=== PATIENT | male | born 1980 | race Caucasian/White ===

== ENCOUNTER 2016-11-23 20:43 | Emergency (ER) | payer MEDICAID ==
[~2016-11-23] VITALS: Ht 172.7 cm; Wt 85.0 kg
[2016-11-23 20:46] VITALS: Ht 172.7 cm; Wt 85.0 kg
[2016-11-23 22:45] VITALS: BP 132/97; PULSE 92; RESP 18
--- NOTE | 2016-11-24 03:42 | ERD ---
ER Documentation Chief Complaint Date/Time DATE: 11/24/16 TIME: 03:39 Chief Complaint acting inappropriately tired, smells of ETOH, acu check 120 HPI 36-year-old male with a history of hypertension and diabetes presenting complaining of dizziness and blurry vision. He states he drank 2 24-ounce beers as he usually does every day. After this he decided to smoke a cigarette that was reportedly laced with marijuana which the patient usually does not do. After this he started feeling anxious, dizzy, and had blurry vision. He denies any associated headache, nausea, vomiting, chest pain or shortness of breath. After the patient arrived to the ER, he started feeling better. Currently he denies any of the aforementioned complaints. ROS All systems reviewed and are negative except as per history of present illness. Allergies Allergies: Coded Allergies: No Known Allergy (Unverified , 11/23/16) PMhx/Soc History of Surgery: No Anesthesia Reaction: No Hx Neurological Disorder: No Hx Respiratory Disorders: No Hx Cardiac Disorders: Yes (HYPERTENSION, CHOLESTEROL ) Hx Psychiatric Problems: No Hx Miscellaneous Medical Probl: Yes (DIABETES ) Hx Alcohol Use: Yes Hx Substance Use: No Hx Tobacco Use: Yes Smoking Status: Current every day smoker FmHx Family History: No coronary disease Physical Exam Vitals Vital Signs Date Time Temp Pulse Resp B/P Pulse Ox O2 Delivery O2 Flow Rate FiO2 11/23/16 22:45 92 18 132/97 100 Room Air 11/23/16 20:46 97.8 103 20 141/96 96 Physical Exam Const: Nontoxic, well-developed, well-nourished, no distress Head: Atraumatic Eyes: Normal Conjunctiva, EOMI, Gerard ENT: Normal External Ears, Nose and Mouth. Neck: Full range of motion. No meningismus. Resp: Clear to auscultation bilaterally Cardio: Regular rate and rhythm, no murmurs Abd: Soft, non tender, non distended. Normal bowel sounds Skin: No petechiae or rashes Back: No midline or flank tenderness Ext: No cyanosis, or edema Neuro: M/S: Alert and oriented Face: EOMI, face and pharynx with normal sensation and function Motor: Normal strength throughout Sensation: Normal sensation throughout Speech: Normal Cerebel: Normal coordination Normal gait Normal finger to nose DTR: 2+ and symmetric upper/lower extremities Psych: Normal Mood and Affect Procedures/MDM Patient is presenting with complaints of dizziness and anxiety after smoking marijuana. His vitals are all within normal limits. The time I evaluated the patient, he had no persistent symptoms. He feels much better and is ready to go home. I do not believe the patient needs any further workup with labs or imaging at this time. I do not suspect acute coronary syndrome, acute stroke, or other serious cardiopulmonary etiology of his symptoms. I suspect his symptoms are secondary to smoking marijuana in addition to drinking alcohol. Return precautions were discussed with the patient and his in detail. The patient was ambulating with a steady gait and tolerating fluids by mouth. He was discharged in a stable condition with strict return precautions. He was advised to abstain from any drugs and alcohol. Departure Diagnosis: Primary Impression: Adverse reaction to cannabis Encounter type: initial encounter Qualified Code: T40.7X5A - Adverse reaction to cannabis, initial encounter Additional Impression: Alcohol intoxication Complication of substance-induced condition: uncomplicated Qualified Code: F10.120 - Alcohol intoxication, uncomplicated Condition: Stable Patient Instructions: Possible Causes of Dizziness or Fainting Additional Instructions: No usa marijuana or otros drogas. Si estas empeorando, regrese a la sharri emergencia. JENNIFER MORILLO MD Nov 24, 2016 03:42
== END 2016-11-24 00:37 | disposition home or self-care (01) ==
LOC: E/R 20:43
DX: F10.120 Alcohol abuse with intoxication, uncomplicated (principal); T40.7X5A Adverse effect of cannabis (derivatives), initial encounter; I10 Essential (primary) hypertension; E11.9 Type 2 diabetes mellitus without complications; F17.210 Nicotine dependence, cigarettes, uncomplicated
CPT/HCPCS: 99282

== ENCOUNTER 2016-12-24 00:43 | Emergency (ER) | payer MEDICAID ==
[~2016-12-24] VITALS: Ht 167.6 cm; Wt 83.8 kg
[2016-12-24 00:48] VITALS: Ht 167.6 cm; Wt 83.8 kg
[2016-12-24] MEDS ORDERED: METF500T4 PO (02:15)
--- NOTE | 2016-12-24 02:16 | ERD ---
ER Documentation Chief Complaint Date/Time DATE: 12/24/16 TIME: 02:14 Chief Complaint headache x 1 day HPI 36-year-old male presents here in emergency department for multiple complaints. Patient is complaining of headache, throbbing pain, 6/10 scale, not better or worse with anything. Patient also is complaining of left mid chest burning pain , 4/10 scale, and palpitations with it, accompanying also with a headache. Patient states he is going through a lot of stress lately. Patient did not take any medications of symptoms. Patient denies any dizziness. Patient denies any dyspnea on exertion or dyspnea on lying down. Patient denies any head injury. Patient denies any changes in balance or memory. Patient denies any blurry vision. Patient denies any nausea or vomiting. ROS All systems reviewed and are negative except as per history of present illness. Medications Home Meds Reported Medications Metformin* (Glucophage*) Unknown Strength Tab, PO DAILY, #20 TAB 12/24/16 Allergies Allergies: Coded Allergies: No Known Drug Allergies (Verified Allergy, Unknown, 12/24/16) PMhx/Soc History of Surgery: No Anesthesia Reaction: No Hx Neurological Disorder: No Hx Respiratory Disorders: No Hx Cardiac Disorders: Yes (HYPERTENSION, CHOLESTEROL ) Hx Psychiatric Problems: No Hx Miscellaneous Medical Probl: Yes (DIABETES ) Hx Alcohol Use: Yes Hx Substance Use: No Hx Tobacco Use: Yes FmHx Family History: No coronary disease, No diabetes, No other Physical Exam Vitals Vital Signs Date Time Temp Pulse Resp B/P Pulse Ox O2 Delivery O2 Flow Rate FiO2 12/24/16 00:48 97.7 104 20 163/95 98 Physical Exam GENERAL: The patient is well developed and appropriate for usual state of health, in no apparent distress. CHEST: Clear to auscultation bilaterally. There are no rales, wheezes or rhonchi. HEART: Regular rate and rhythm. No murmurs, clicks, rubs or gallops. No S3 or S4. ABDOMEN: Soft, nontender and nondistended. Good bowel sounds. No rebound or guarding. No gross peritonitis. No gross organomegaly or masses. No Payne sign or McBurney point tenderness. BACK: No midline or flank tenderness. EXTREMITIES: Equal pulses bilaterally. There is no peripheral clubbing, cyanosis or edema. No focal swelling or erythema. Full range of motion. Grossly neurovascularly intact. NEURO: Alert and oriented. Cranial nerves 2-12 intact. Motor strength in all 4 extremities with 5/5 strength. Sensation grossly intact. Normal speech and gait. Negative Romberg sign. Negative pronator drift. SKIN: There is no apparent rash or petechia. The skin is warm and dry. HEMATOLOGIC AND LYMPHATIC: There is no evidence of excessive bruising or lymphedema. No gross cervical, axillary, or inguinal lymphadenopathy. Result Diagram: 12/24/1624912/24/16 0250 Results 24 hrs Laboratory Tests Test 12/24/16 02:50 Alanine Aminotransferase (ALT/SGPT) 27IU/L Albumin 4.7g/dl Albumin/Globulin Ratio 1.56 Alkaline Phosphatase 68IU/L Anion Gap 19 Aspartate Amino Transf (AST/SGOT) 26IU/L Basophils # 0.010^3/ul Basophils % 0.4% Blood Urea Nitrogen 11mg/dl Calcium Level 9.5mg/dl Carbon Dioxide Level 25mmol/L Chloride Level 102mmol/L Creatinine 0.64mg/dl Direct Bilirubin 0.00mg/dl Eosinophils # 0.110^3/ul Eosinophils % 1.8% Globulin 3.00g/dl Glucose Level 135mg/dl Hematocrit 47.9% Hemoglobin 16.1g/dl Indirect Bilirubin 0.4mg/dl Lymphocytes # 2.610^3/ul Lymphocytes % 31.7% Mean Corpuscular Hemoglobin 30.7pg Mean Corpuscular Hemoglobin Concent 33.7g/dl Mean Corpuscular Volume 91.0fl Mean Platelet Volume 8.0fl Monocytes # 0.610^3/ul Monocytes % 7.2% Neutrophils # 4.810^3/ul Neutrophils % 58.9% Nucleated Red Blood Cells # 0.010^3/ul Nucleated Red Blood Cells % 0.0/100WBC Platelet Count 91586^3/UL Potassium Level 3.8mmol/L Red Blood Count 5.2610^6/ul Red Cell Distribution Width 12.8% Sodium Level 142mmol/L Total Bilirubin 0.4mg/dl Total Protein 7.7g/dl Troponin I < 0.012ng/ml White Blood Count 8.210^3/ul EKG was done, read by me and is normal sinus rhythm at a rate of 92, normal axis , there is no ST changes or changes in the EKG that indicates any cardiac emergencies at this time. Patient's EKG was also reviewed by Dr. Brown. Impression: no acute findings on EKG PROCEDURE: Portable chest x-ray. CLINICAL INDICATION: Chest pain. TECHNIQUE: Portable AP view of the chest. COMPARISON: None. FINDINGS: No pulmonary edema or conolidation is identified. The cardiac silhouette is magnified. No pleural effusion is seen. There is no pneumothorax. IMPRESSION: 1. No evidence of acute cardiopulmonary disease. RPTAT: HTAR .Eliu Wing MD, MD Date Time Electronically viewed and signed by .Eliu Wing MD, MD on 12/24/2016 02:50 .R/ CC: TORI DAMON NP PROCEDURE: CT Brain without contrast CLINICAL INDICATION: Headache TECHNIQUE: A CT of the brain was performed on multidetector high-resolution CT scanner utilizing axial sections from the skull base through the vertex without contrast. The scan was reviewed in soft tissue brain and high frequency resolution bone algorithm windows. Images were reviewed on a high- resolution PACS workstation. The exam CTDI = 45.01 mGy and the DLP = 720.23 mGy- cm. One or more of the following dose reduction techniques were used: - Automated exposure control. - Adjustment of the mA and/or kV according to patient size. - Use of iterative reconstruction technique. COMPARISON: None available FINDINGS: The ventricles and sulci are symmetric and normal in size and morphology. There is no evidence of intracranial hemorrhage, mass effect, edema or midline shift. No abnormal intra-axial or extra-axial fluid collections are seen. The density of the brain is normal and the sheehan/white matter differentiation is well preserved. Brainstem and posterior fossa structures are equally unremarkable. The osseous structures and visualized paranasal sinuses are unremarkable. The surrounding soft tissue scalp and bony calvarium are intact and normal. There is appearance of a 3 mm skin mole in the upper midline frontoparietal region. IMPRESSION: No acute abnormality seen. RPTAT: HJES .Quinn Dean MD, MD Date Time Electronically viewed and signed by .Quinn Dean MD, on 12/24/2016 03:29 Procedures/MDM Medical Decision Making: Patient symptoms is likely consistent with anxiety, possible tension headache and anxiety sensation causing some chest pain and palpitations. There is low suspicion for cardiopulmonary emergencies at this time. Patient has low risk factors. EKG is normal, there is no changes in the EKG that indicates cardiac emergencies. Chest X-ray does not show cardiopulmonary emergencies at this time. There is low suspicion for aortic aneurysm, myocardial infarction, pneumothorax, pleural effusion, pulmonary embolism, or any other cardiopulmonary emergencies at this time. Cardiac markers are normal. There is low suspicion for neurological emergencies at this time since patients neurologic exam is normal. Patient did not have any altered level consciousness, vomiting, changes in balance or memory after incident. Patients CT scan of the head does not show any neurological emergencies at this time. Patient was given a prescription for tramadol for severe pain, is advised to follow-up with primary care doctor in 1-2 days for reevaluation of symptoms. Patient was advised to return to emergency department for any worsening symptoms Departure Diagnosis: Primary Impression: Headache Headache type: unspecified Headache chronicity pattern: acute headache Intractability: not intractable Qualified Code: R51 - Acute nonintractable headache, unspecified headache type Additional Impression: Atypical chest pain Condition: Stable Patient Instructions: Chest Pain, Noncardiac , Self-Care for Headaches Additional Instructions: Patient was given a prescription for tramadol for severe pain, is advised to follow-up with primary care doctor in 1-2 days for reevaluation of symptoms. Patient was advised to return to emergency department for any worsening symptoms TORI DAMON NP Dec 24, 2016 02:16
--- NOTE | 2016-12-24 02:50 | RADRPT ---
PROCEDURE: Portable chest x-ray. CLINICAL INDICATION: Chest pain. TECHNIQUE: Portable AP view of the chest. COMPARISON: None. FINDINGS: No pulmonary edema or conolidation is identified. The cardiac silhouette is magnified. No pleural effusion is seen. There is no pneumothorax. IMPRESSION: 1. No evidence of acute cardiopulmonary disease. RPTAT: HTAR .Eliu Wing MD, MD Date Time Electronically viewed and signed by .Eliu Wing MD, on 12/24/2016 02:50 .R/
--- NOTE | 2016-12-24 03:29 | RADRPT ---
PROCEDURE: CT Brain without contrast CLINICAL INDICATION: Headache TECHNIQUE: A CT of the brain was performed on multidetector high-resolution CT scanner utilizing a xial sections from the skull base through the vertex without contrast. The scan was reviewed in sof t tissue brain and high frequency resolution bone algorithm windows. Images were reviewed on a high -resolution PACS workstation. The exam CTDI = 45.01 mGy and the DLP = 720.23 mGy-cm. One or more of the following dose reduction techniques were used: - Automated exposure control. - Adjustment of the mA and/or kV according to patient size. - Use of iterative reconstruction technique. COMPARISON: None available FINDINGS: The ventricles and sulci are symmetric and normal in size and morphology. There is no evidence of i ntracranial hemorrhage, mass effect, edema or midline shift. No abnormal intra-axial or extra-axial fluid collections are seen. The density of the brain is normal and the sheehan/white matter different iation is well preserved. Brainstem and posterior fossa structures are equally unremarkable. The o sseous structures and visualized paranasal sinuses are unremarkable. The surrounding soft tissue sc alp and bony calvarium are intact and normal. There is appearance of a 3 mm skin mole in the upper m idline frontoparietal region. IMPRESSION: No acute abnormality seen. RPTAT: HJES .Quinn Dean MD, Date Time Electronically viewed and signed by .Quinn Dean MD, on 12/24/2016 03:29 .S/
[2016-12-24 03:50] LABS: CHLORIDE 102 mmol/L (97-110)
[2016-12-24 03:51] LABS: ALBUMIN 4.7 g/dl (3.3-4.9); BASOPHILS % 0.4 % (0.0-2.0); EOSINOPHILS # 0.1 10^3/ul (0.0-0.5); EOSINOPHILS % 1.8 % (0.0-7.0); HEMATOCRIT 47.9 % (42.0-52.0); HEMOGLOBIN 16.1 g/dl (14.0-18.0); LYMPHOCYTES # 2.6 10^3/ul (0.8-2.9); LYMPHOCYTES % 31.7 % (15.0-51.0); MEAN CORPUSCULAR HEMOGLOBIN 30.7 pg (29.0-33.0); MEAN CORPUSCULAR HGB CONC 33.7 g/dl (32.0-37.0); MONOCYTE # 0.6 10^3/ul (0.3-0.9); MONOCYTES % 7.2 % (0.0-11.0); NEUTROPHIL # 4.8 10^3/ul (1.6-7.5); NEUTROPHILS % 58.9 % (39.0-77.0); PLATELET COUNT 365 10^3/UL (140-440); POTASSIUM 3.8 mmol/L (3.5-5.1); RED BLOOD COUNT 5.26 10^6/ul (4.70-6.10); RED CELL DISTRIBUTION WIDTH 12.8 % (11.5-14.5); SODIUM 142 mmol/L (135-144); UNCORRECTED WBC 8.2 10^3/ul (4.8-10.8); WHITE BLOOD COUNT 8.2 10^3/ul (4.8-10.8)
[2016-12-24 03:53] LABS: CREATININE 0.64 mg/dl (0.61-1.24)
[2016-12-24 03:54] LABS: ALANINE AMINOTRANSFERASE 27 IU/L (13-69); ALBUMIN/GLOBULIN RATIO 1.56; ALKALINE PHOSPHATASE 68 IU/L (42-121); ANION GAP 19 (8-16); ASPARTATE AMINO TRANSFERASE 26 IU/L (15-46); BILIRUBIN,INDIRECT 0.4 mg/dl (0-1.1); BILIRUBIN,TOTAL 0.4 mg/dl (0.2-1.3); BLOOD UREA NITROGEN 11 mg/dl (7-20); CALCIUM 9.5 mg/dl (8.4-10.2); CARBON DIOXIDE 25 mmol/L (21-31); CONDITION 1; GLUCOSE 135 mg/dl (70-220); TOTAL PROTEIN 7.7 g/dl (6.1-8.1)
[2016-12-24 04:10] LABS: TROPONIN-I < 0.012 ng/ml (0.00-0.12)
[2016-12-24] MEDS ORDERED: TRAM50TA2 PO (04:41)
[2016-12-24 05:19] VITALS: BP 140/85; PULSE 94; RESP 20; TEMP 98.3
== END 2016-12-24 05:19 | disposition home or self-care (01) ==
LOC: FTE 00:43
DX: R51 Headache (principal); R07.89 Other chest pain; I10 Essential (primary) hypertension; E11.9 Type 2 diabetes mellitus without complications; Z79.84 Long term (current) use of oral hypoglycemic drugs; Z72.0 Tobacco use
CPT/HCPCS: 36415; 70450; 71010; 80053; 84484; 85025; 93005; Z7502

== ENCOUNTER 2017-03-31 16:26 | Emergency (ER) | payer MEDICAID, OTHER ==
[~2017-03-31] VITALS: Ht 172.7 cm; Wt 74.0 kg
[~2017-03-31 16:26] MED LIST: METF500T4 PO; TRAM50TA2 PO
[2017-03-31 16:27] VITALS: Ht 172.7 cm; Wt 74.0 kg
[2017-03-31] MEDS ORDERED: IBUP-1542 PO (16:59)
[2017-03-31] MEDS ORDERED: CEPH-443 PO (16:59)
[2017-03-31] MEDS ORDERED: DIPHTH/TET/ACEL PERTUSS (ADULT) 0.5 ML VIAL IM* ONE (17:00)
[2017-03-31] MEDS ORDERED: HYDROCODONE/APAP (5/325) TAB PO ONE (17:00)
[2017-03-31] MEDS ORDERED: LIDOCAINE 1% (MDV) 20 ML INJ SC ONE (17:00)
--- NOTE | 2017-03-31 17:02 | ERD ---
ER Documentation Chief Complaint Date/Time DATE: 03/31/17 TIME: 17:00 Chief Complaint left hand lac with a knife today HPI Patient is a 36-year-old male with past medical history of hypertension, diabetes, hyperlipidemia presents with laceration of his left hand which occurred approximately 1 hour ago. Patient notes that he was attempting to cut open in his room when he accidentally cut his left hand. Patient does report bleeding which is now resolved. Patient has normal range of motion of all digits. Patient states his last tetanus vaccination was greater than 5 years ago. Patient denies any injuries to the affected extremity. Patient is R hand dominant. ROS All systems reviewed and are negative except as per history of present illness. Medications Home Meds Active Scripts Hydrocodone/Acetaminophen (Artemus 5-325 Tablet) 1 Each Tablet, 1 TAB PO Q6H Y for PAIN, #7 TAB Prov:JOHNNY CHRISTOPHER PA-C 03/31/17 Ibuprofen* (Motrin*) 600 Mg Tab, 600 MG PO Q6, #30 TAB Prov:JOHNNY CHRISTOPHER PA-C 03/31/17 Cephalexin* (Keflex*) 500 Mg Capsule, 500 MG PO QID for 10 Days, CAP Prov:JOHNNY CHRISTOPHER PA-C 03/31/17 Tramadol HCl (Tramadol HCl) 50 Mg Tablet, 50 MG PO Q6 Y for PAIN, #20 TAB Prov:TORI DAMON NP 12/24/16 Reported Medications Metformin* (Glucophage*) Unknown Strength Tab, PO DAILY, #20 TAB 12/24/16 Allergies Allergies: Coded Allergies: No Known Drug Allergies (Verified Allergy, Unknown, 12/24/16) PMhx/Soc History of Surgery: No Anesthesia Reaction: No Hx Neurological Disorder: No Hx Respiratory Disorders: No Hx Cardiac Disorders: Yes (HTN Cholesterol) Hx Psychiatric Problems: No Hx Alcohol Use: No Hx Substance Use: No Hx Tobacco Use: No Physical Exam Vitals Vital Signs Date Time Temp Pulse Resp B/P Pulse Ox O2 Delivery O2 Flow Rate FiO2 03/31/17 16:27 98.6 110 18 138/87 100 Physical Exam GENERAL: Well-developed, well-nourished male. Appears in no acute distress. HEAD: Normocephalic, atraumatic. EYES: Pupils are equally reactive bilaterally. EOMs grossly intact. No conjunctival erythema. ENT: Moist mucous membranes. No uvula deviation. No kissing tonsils. NECK: Supple. No meningismus. Normal range of motion of the neck. LUNG: Clear to auscultation bilaterally. No rhonchi, wheezing, rales or coarse breath sounds. HEART: Regular rate and rhythm. No murmurs, rubs or gallops. EXTREMITIES: Equal pulses bilaterally. No peripheral clubbing, cyanosis or edema. No unilateral leg swelling. NEUROLOGIC: Alert and oriented. Moving all four extremities without any difficulty. Normal speech. Steady gait. SKIN: Normal color. Warm and dry. No rashes or lesions. LEFT HAND: 4 cm linear laceration noted to the dorsal aspect of the patient's left hand below the thumb. Patient has normal range of motion of all digits. Normal bleeding. Neurovascularly intact. (Able to give thumbs up, make an ok sign, cross digits 2 and 3, thumb to pinky opposition. 2+ RP.) No snuffbox tenderness. Results 24 hrs Current Medications Medications (Trade) Dose Ordered Sig/Mohan Route PRN Reason Start Time Stop Time Status Last Admin Dose Admin Acetaminophen/ Hydrocodone Bitart (Artemus (5/325)) 1 tab ONCE ONCE PO 03/31/17 17:00 03/31/17 17:01 DC 03/31/17 16:56 Lidocaine (Xylocaine 1% (Mdv) 20 ml) 20 ml ONCE ONCE SC 03/31/17 17:00 03/31/17 17:01 DC Diphtheria/ Tetanus/Acell Pertussis (Adacel) 0.5 ml ONCE ONCE IM* 03/31/17 17:00 03/31/17 17:01 DC 03/31/17 17:00 Procedures/MDM ED COURSE: The patient was stable throughout ED course. I kept the patient and/or family informed of laboratory and diagnostic imaging results throughout the ED course. PROCEDURES: Laceration Repair by me: Anesthesia: 1% lidocaine locally Location: left hand, below left thumb Tendon/Joint/Nerves: No injury Foreign body: None detected after copious irrigation and exploration Technique: 7 Simple Interrupted Sutures, Prolene 4-0 Complexity: No subcutaneous sutures/mucosal repair/edge excision Post Closure Length: 4 cm Patient's bleeding was easily controlled in the department and there is no indication of anemia. No evidence of compartment syndrome, neurologic injury, vascular injury, open joint, tendon laceration, or foreign body. Scar minimization instructions given. MEDICATIONS GIVEN: Artemus Patient tolerated medication well with no adverse reactions. Patient reported improvement in pain. MEDICAL DECISION MAKING: This is a 36-year-old male presents with a laceration to his left hand after cutting it with a kitchen knife while attempting to cut a coconut. Vital signs were reviewed. Patient was afebrile. The wound was cleansed thoroughly and closed using 7 sutures. The patient had good wound closure and wound approximation. Patient tolerated wound closure without any complications. Patient was able to move all digits without any difficulty. Patient is neurovascularly intact. Tetanus vaccination was given to the patient today. Given that patient does have a history of diabetes, patient will be sent home with a course of antibiotics for 10 days. At this time the patient's presentation most consistent laceration. Low suspicion for tendon injury, vascular injury, nerve injury, foreign body. PRESCRIPTIONS: Artemus, Ibuprofen, Keflex DISCHARGE: At this time, the patient is stable for discharge and outpatient management. Post-procedural wound care was discussed with the patient. The patient has been advised to return to the ER in 2 days for a wound check and then again in 10-12 days for suture removal. I have instructed the patient to promptly return to the ER for any new or worsening symptoms including increasing pain, fever, warmth, redness or swelling. The patient and/or family expressed understanding of and agreement with this plan. All questions were answered. Home care instructions were provided. Departure Diagnosis: Primary Impression: Laceration Condition: Stable Patient Instructions: Laceration, Hand Referrals: [facility] YOU HAVE RECEIVED A MEDICAL SCREENING EXAM AND THE RESULTS INDICATE THAT YOU DO NOT HAVE A CONDITION THAT REQUIRES URGENT TREATMENT IN THE EMERGENCY DEPARTMENT. FURTHER EVALUATION AND TREATMENT OF YOUR CONDITION CAN WAIT UNTIL YOU ARE SEEN IN YOUR DOCTORS OFFICE WITHIN THE NEXT 1-2 DAYS. IT IS YOUR RESPONSIBILITY TO MAKE AN APPOINTMENT FOR FOLOW-UP CARE. IF YOU HAVE A PRIMARY DOCTOR --you should call your primary doctor and schedule an appointment IF YOU DO NOT HAVE A PRIMARY DOCTOR YOU CAN CALL OUR PHYSICIAN REFERRAL HOTLINE AT IF YOU CAN NOT AFFORD TO SEE A PHYSICIAN YOU CAN CHOSE FROM THE FOLLOWING [facility] [address] [facility]. [facility] [address] [facility] [address] [facility] [address] [facility] [facility] [address] [facility]. [facility] [address] [facility]. [facility]. [address] [facility]. [facility] YOU HAVE RECEIVED A MEDICAL SCREENING EXAM AND THE RESULTS INDICATE THAT YOU DO NOT HAVE A CONDITION THAT REQUIRES URGENT TREATMENT IN THE EMERGENCY DEPARTMENT. FURTHER EVALUATION AND TREATMENT OF YOUR CONDITION CAN WAIT UNTIL YOU ARE SEEN IN YOUR DOCTORS OFFICE WITHIN THE NEXT 1-2 DAYS. IT IS YOUR RESPONSIBILITY TO MAKE AN APPOINTMENT FOR FOLOW-UP CARE. IF YOU HAVE A PRIMARY DOCTOR --you should call your primary doctor and schedule and appointment IF YOU DO NOT HAVE A PRIMARY DOCTOR YOU CAN CALL OUR PHYSICIAN REFERRAL HOTLINE AT . IF YOU CAN NOT AFFORD TO SEE A PHYSICIAN YOU CAN CHOSE FROM THE FOLLOWING [facility] INSTITUTIONS: [facility] [address] [place] [address] [facility] [address] [place] [address] [facility] + [facility] [address] [place] [address] Additional Instructions: Return to this facility in 2 DAYS for a follow-up exam.Return sooner if your condition worsens. Recheck advised in 2 days. Take antibiotics as prescribed. Return sooner for any worsening symptoms including redness, swelling, fever, chills, significant pain or bleeding. JOHNNY CHRISTOPHER PA-C March 31, 2017 17:02
[2017-03-31] MEDS ORDERED: HYDR-906 PO (17:39)
== END 2017-03-31 18:15 | disposition home or self-care (01) ==
LOC: FTE 16:26
DX: S61.412A Laceration without foreign body of left hand, initial encounter (principal); I10 Essential (primary) hypertension; E11.9 Type 2 diabetes mellitus without complications; W26.0XXA Contact with knife, initial encounter; Y92.9 Unspecified place or not applicable; Z23 Encounter for immunization; Z79.84 Long term (current) use of oral hypoglycemic drugs
CPT/HCPCS: 12002; 90715; Z7610; 90471

== ENCOUNTER 2018-07-02 08:09 | Emergency (ER) | END 2018-07-02 08:46 | disposition home or self-care (01) ==

== ENCOUNTER 2018-09-22 19:40 | Emergency (ER) | END 2018-09-22 22:08 | disposition home or self-care (01) ==

== ENCOUNTER 2018-09-30 11:17 | Emergency (ER) | END 2018-09-30 14:08 | disposition home or self-care (01) ==

== ENCOUNTER 2019-05-16 06:56 | Emergency (ER) | payer MEDICAID ==
[~2019-05-16] VITALS: Ht 162.6 cm; Wt 90.0 kg
[~2019-05-16 06:56] MED LIST changes: +ACET325T33 PO; +BACL10TA PO; +CEPH-443 PO; +DIPH28.33 TP; +HYDR-4011 PO; +IBUP-1542 PO; +METF-849 PO; -METF500T4 PO
[2019-05-16 06:58] VITALS: BP 127/63; PULSE 86; RESP 18; Ht 162.6 cm; Wt 90.0 kg
--- NOTE | 2019-05-16 07:19 | ERD ---
ER Documentation Chief Complaint Chief Complaint RASH, WORKS TRIMMING TREES HPI Patient is a 39 years old male with no known past medical history presenting to the ED for pruritic red rash on bilateral upper extremity, neck, chest, trunk X few days. 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 Patient admits to taking some [id number] cream that he cannot recall without resolution of symptoms. Patient denies fever, chills, night sweats, pus drainage, pain, malaise, joint pain. Patient reports the rash is very pruritic. ROS All systems reviewed and are negative except as per history of present illness. Medications Home Meds Active Scripts Baclofen* (Baclofen*) 10 Mg Tablet, 10 MG PO TID PRN for MUSCLE SPASMS, #12 TAB Prov:STANTON WILSON MD 09/30/18 Acetaminophen* (Tylenol*) 325 Mg Tablet, 2 TAB PO Q8 PRN for PAIN AND OR ELEVATED TEMP, #20 TAB Prov:STANTON WILSON MD 09/30/18 Ibuprofen* (Motrin*) 600 Mg Tab, 600 MG PO Q8, #20 TAB Prov:STANTON WILSON MD 09/30/18 Ibuprofen* (Motrin*) 600 Mg Tab, 600 MG PO Q6, #30 TAB Prov:ARI FREEMAN PA-C 09/22/18 Diphenhydramine Hcl/Zinc Acet (Benadryl Itch Stopping Crm) 28.3 Gm Cream.gm., 1 APPLIC TP TID for itching, #1 TUB Prov:JOHNNY CHRISTOPHER PA-C 07/02/18 Cephalexin* (Keflex*) 500 Mg Capsule, 500 MG PO TID for 7 Days, CAP Prov:JOHNNY CHRISTOPHER PA-C 07/02/18 Hydrocodone/Acetaminophen ([place] 5-325 Tablet) 1 Each Tablet, 1 TAB PO Q6H PRN for PAIN, #7 TAB Prov:JOHNNY CHRISTOPHER PA-C 03/31/17 Ibuprofen* (Motrin*) 600 Mg Tab, 600 MG PO Q6, #30 TAB Prov:JOHNNY CHRISTOPHER PA-C 03/31/17 Cephalexin* (Keflex*) 500 Mg Capsule, 500 MG PO QID for 10 Days, CAP Prov:ASHWIN,JISSILLE PA-C 03/31/17 Tramadol HCl (Tramadol HCl) 50 Mg Tablet, 50 MG PO Q6 PRN for PAIN, #20 TAB Prov:TORI DAMON NP 12/24/16 Reported Medications Metformin* (Glucophage*) Unknown Strength Tab, PO DAILY, #20 TAB 12/24/16 Allergies Allergies: Coded Allergies: No Known Drug Allergies (Verified Allergy, Unknown, 09/30/18) PMhx/Soc Medical and Surgical Hx: pt denies Surgical Hx History of Surgery: No Anesthesia Reaction: No Hx Neurological Disorder: No Hx Respiratory Disorders: No Hx Cardiac Disorders: Yes (HTN Cholesterol) Hx Psychiatric Problems: No Hx Miscellaneous Medical Probl: No Hx Alcohol Use: No Hx Substance Use: No Hx Tobacco Use: No Smoking Status: Never smoker FmHx Family History: No diabetes, No coronary disease, No other Physical Exam Vitals Vital Signs Date Temp Pulse Resp B/P (MAP) Pulse Ox O2 O2 Flow FiO2 Time Delivery Rate 05/16/19 98.1 86 18 127/63 99 06:58 (84) Physical Exam Const: No acute distress Head: Atraumatic Eyes: Normal Conjunctiva Resp: Clear to auscultation bilaterally Cardio: Regular rate and rhythm, no murmurs Skin: Large dry rash on an erythematous base on bilateral upper extremities, neck, torso. No signs of induration, pus drainage, tenderness. Neur: Awake and alert Psych: Normal Mood and Affect Procedures/MDM Patient was seen and evaluated for pruritic rash without complications. Rashes most likely psoriasis versus eczema. Low suspicion of cellulitis. Patient was given Solu-Medrol 125 mg IM in ED with resolution of symptoms. Patient stable ready for discharge. Follow-up with PCP. Patient will be discharged with hydrocortisone cream, Benadryl, and Medrol Dosepak. Patient was advised to avoid scratching rash. Patient was advised to keep skin moisturized. Departure Diagnosis: Primary Impression: Rash and other nonspecific skin eruption Condition: Stable Patient Instructions: Self-Care for Skin Rashes Referrals: [facility] Additional Instructions: Paciente aconseja volver a Departamento de urgencias inmediatamente para sntomas nuevos o que empeoran . Paciente aconseja posteriores con el PCP en 2-3 yoon . Paciente verbaliza la comprehensin y est de acuerdo con el tratamiento y el curso de accin. Si el paciente no tiene ninguna de atencin primaria pueden seguir con [facility] [address] [place] [address] o [facility] + [address] [address] SONIA PATEL PA-C May 16, 2019 07:19
[2019-05-16] MEDS ORDERED: MED4DP PO (07:20)
[2019-05-16] MEDS ORDERED: HC30CR25 TOP (07:20)
[2019-05-16] MEDS ORDERED: BEN25 PO (07:20)
[2019-05-16] MEDS ORDERED: METHYLPREDNISOLONE 125 MG INJ IM ONE (07:30)
== END 2019-05-16 07:37 | disposition home or self-care (01) ==
LOC: FTE 06:56
DX: L53.9 Erythematous condition, unspecified (principal); I10 Essential (primary) hypertension; E11.9 Type 2 diabetes mellitus without complications; Z79.84 Long term (current) use of oral hypoglycemic drugs
CPT/HCPCS: 96372; J2930; Z7502

== ENCOUNTER 2019-05-18 12:47 | Emergency (ER) | payer MEDICAID ==
[~2019-05-18] VITALS: Ht 172.7 cm; Wt 87.1 kg
[~2019-05-18 12:47] MED LIST changes: +BEN25 PO; +HC30CR25 TOP; +MED4DP PO
[2019-05-18 12:56] VITALS: BP 118/59; PULSE 89; RESP 20; Ht 172.7 cm; Wt 87.1 kg
[2019-05-18] MEDS ORDERED: TRIA15CR55 TOP (13:05)
[2019-05-18] MEDS ORDERED: CALAMINE TOP (13:05)
--- NOTE | 2019-05-18 13:09 | ERD ---
ER Documentation Chief Complaint Chief Complaint c/o rash left forearm from poison dora, on steroids at home. BS: 193 HPI 39-year-old male presents with itchy rash on his left forearm for last week. He was exposed to poison dora. He was seen here few days ago and prescribed a Medrol Dosepak, hydrocortisone and Benadryl. He complains of no improvement in the rash which is itchy. Denies fevers or worsening redness, vomiting, shortness of breath. Is concerned because his blood sugar was over 400 at home. Denies vomiting, headache, abdominal pain, additional symptoms. ROS All systems reviewed and are negative except as per history of present illness. Medications Home Meds Active Scripts Calamine* (Calamine*) 120 Ml Lotion, 1 APPLIC TOP Q4H for RASH for 7 Days, EA Prov:PARESH HOWARD MD 05/18/19 Triamcinolone Acetonide (Triamcinolone Acetonide) 0.1% - 15 Gm Cream.gm., 1 APPLIC TOP QID for 7 Days, #1 TUB Prov:PARESH HOWARD MD 05/18/19 Diphenhydramine Hcl* (Benadryl*) 25 Mg Cap, 25 MG PO Q6 PRN for ITCHING/RASH, #30 TAB Prov:SONIA PATEL PA-C 05/16/19 Hydrocortisone* Topical (Hydrocortisone* Topical) 2.5%-28.3 Gm Cream..g., 1 APPLIC TOP BID, #1 TUB Prov:SONIA PATEL PA-C 05/16/19 Methylprednisolone* (Medrol* DOSE PACK) 4 Mg/Dose-Pack Tab.ds.pk, 4 MG PO . DIRECTED for 5 Days, PACKET Prov:SONIA PATEL PA-C 05/16/19 Baclofen* (Baclofen*) 10 Mg Tablet, 10 MG PO TID PRN for MUSCLE SPASMS, #12 TAB Prov:STANTON WILSON MD 09/30/18 Acetaminophen* (Tylenol*) 325 Mg Tablet, 2 TAB PO Q8 PRN for PAIN AND OR ELEV ATED TEMP, #20 TAB Prov:STANTON WILSON MD 09/30/18 Ibuprofen* (Motrin*) 600 Mg Tab, 600 MG PO Q8, #20 TAB Prov:STANTON WILSON MD 09/30/18 Ibuprofen* (Motrin*) 600 Mg Tab, 600 MG PO Q6, #30 TAB Prov:ARI FREEMAN PA-C 09/22/18 Diphenhydramine Hcl/Zinc Acet (Benadryl Itch Stopping Crm) 28.3 Gm Cream.gm., 1 APPLIC TP TID for itching, #1 TUB Prov:JOHNNY CHRISTOPHER PA-C 07/02/18 Cephalexin* (Keflex*) 500 Mg Capsule, 500 MG PO TID for 7 Days, CAP Prov:JOHNNY CHRISTOPHER PA-C 07/02/18 Hydrocodone/Acetaminophen ([place] 5-325 Tablet) 1 Each Tablet, 1 TAB PO Q6H PRN for PAIN, #7 TAB Prov:JOHNNY CHRISTOPHER PA-C 03/31/17 Ibuprofen* (Motrin*) 600 Mg Tab, 600 MG PO Q6, #30 TAB Prov:JOHNNY CHRISTOPHER PA-C 03/31/17 Cephalexin* (Keflex*) 500 Mg Capsule, 500 MG PO QID for 10 Days, CAP Prov:JOHNNY CHRISTOPHER PA-C 03/31/17 Tramadol HCl (Tramadol HCl) 50 Mg Tablet, 50 MG PO Q6 PRN for PAIN, #20 TAB Prov:TORI DAMON NP 12/24/16 Reported Medications Metformin* (Glucophage*) Unknown Strength Tab, PO DAILY, #20 TAB 12/24/16 Allergies Allergies: Coded Allergies: No Known Drug Allergies (Verified Allergy, Unknown, 09/30/18) PMhx/Soc History of Surgery: No Anesthesia Reaction: No Hx Neurological Disorder: No Hx Respiratory Disorders: No Hx Cardiac Disorders: Yes (HTN Cholesterol) Hx Psychiatric Problems: No Hx Miscellaneous Medical Probl: No Hx Alcohol Use: No Hx Substance Use: No Hx Tobacco Use: No Smoking Status: Former smoker FmHx Family History: diabetes; No coronary disease, No other Physical Exam Vitals Vital Signs Date Temp Pulse Resp B/P (MAP) Pulse Ox O2 O2 Flow FiO2 Time Delivery Rate 05/18/19 97.9 89 20 118/59 95 12:56 (78) Physical Exam Const: No acute distress Head: Atraumatic Eyes: Normal Conjunctiva ENT: Normal External Ears, Nose and Mouth. Neck: Full range of motion. No meningismus. Resp: Clear to auscultation bilaterally Cardio: Regular rate and rhythm, no murmurs Abd: Soft, non tender, non distended. Normal bowel sounds Skin: No petechiae or purpura. Erythematous maculopapular rash with early weeping on the dorsum left forearm. No induration or streaking. Left upper extremities neurovascular intact. Back: No midline or flank tenderness Ext: No cyanosis, or edema Neur: Awake and alert Psych: Normal Mood and Affect Results 24 hrs Laboratory Tests Test 05/18/19 12:58 Bedside Glucose 193 mg/dL Procedures/[facility] Accu-Chek 193. Patient exhibits no signs or symptoms to suggest sepsis, DKA and does not meet SIRS criteria. His signs and symptoms of contact dermatitis in the left forearm. There is no current signs or symptoms of secondary infection or necrotizing fasciitis, purpura, life-threatening rashes. He will be treated with ampicillin, calamine, reassurance and continuing cold compresses, Benadryl and Medrol Dosepak. Patient was advised the risk of p.o. steroids and hyperglycemia and is encouraged to monitor blood sugar, avoid sugar and drink plenty of fluids. He is advised to return for fevers, vomiting, worsening redness, new worsening symptoms. The patient was stable with no new complaints during the ER course. Clinically, there is no current evidence to suggest meningitis, sepsis, acute abdomen, pneumonia, stroke, acute coronary syndrome, pulmonary embolism, aortic dissection or any other emergent condition appearing to require further evaluation or hospitalization. Patient counseled regarding my diagnostic impression and care plan. Prior to discharge all questions answered. Pt agrees with treatment plan and understands strict return precautions. Pt is instructed to follow up with primary care provider within 24- 48 hours. Precautionary instructions provided including instructions to return to the ER if not improving or for any worsening or changing symptoms or concerns. Disclaimer: Inadvertent spelling and grammatical errors are likely due to EHR/dictation software use and do not reflect on the overall quality of patient care. Also, please note that the electronic time recorded on this note does not necessarily reflect the actual time of the patient encounter. Departure Diagnosis: Primary Impression: Hyperglycemia Additional Impression: Rash Condition: Stable Patient Instructions: Hyperglycemia (High Blood Sugar), Contact Dermatitis Additional Instructions: tma much agua. edwina linares frio y mojada para comezon. azucar ok horita. Cheque otro vez con ochoa doctor primario en el proximo baig or regresa para mas o nueva simptomas- fiebre, mas chase. PARESH HOWARD MD May 18, 2019 13:09
== END 2019-05-18 13:11 | disposition home or self-care (01) ==
LOC: FTE 12:47 → E/R 13:11
DX: E11.65 Type 2 diabetes mellitus with hyperglycemia (principal); I10 Essential (primary) hypertension; Z87.891 Personal history of nicotine dependence; Z79.84 Long term (current) use of oral hypoglycemic drugs
CPT/HCPCS: 82962; Z7502; 99282